=== PATIENT | female | born 1930 | race Caucasian/White ===

== ENCOUNTER 2017-08-24 08:37 | Inpatient (IN) | payer OTHER ==
[2017-07-27 11:50] VITALS: BMI 21.0
--- NOTE | 2017-07-27 12:27 | PAT Medication Instructions ---
Service Date Jul 27, 2017. Current Home Medication List Aspirin (Aspirin Ec), 81 MG PO QPM Levothyroxine Sodium (Levothyroxine Sodium), 1 TAB PO QAM Lisinopril (Prinivil), 5 MG PO QAM Medication Instructions For Your Scheduled Surgery - Hold the following medications the morning of surgery: Lisinopril (Prinivil), 5 MG PO QAM - Take the following medications the morning of surgery with a sip of water: Levothyroxine Sodium (Levothyroxine Sodium), 1 TAB PO QAM - Take the following medications as scheduled the night before surgery: Aspirin (Aspirin Ec), 81 MG PO QPM If you have any questions please call us at [phone] or [phone] or [phone]
--- NOTE | 2017-07-27 13:07 | DIAGNOSTIC IMAGING REPORT ---
CHEST 2 VIEWS ROUTINE CLINICAL HISTORY: Preoperative chest COMPARISON STUDY: No previous studies for comparison. FINDINGS: The heart is at the upper limits of normal in size. There is no failure. There is no focal pulmonary consolidation. There are no pleural effusions. There is a retrocardiac opacity consistent with a hiatal hernia.[ IMPRESSION: Hiatal hernia. No active disease in the chest. Electronically signed by: Júnior Sanchez M.D. 07/27/2017 1:06 PM Dictated Date/Time: 07/27/2017 1:06 PM
[2017-07-27 13:33] LABS: BASO % 0.3 %; BASO ABS # 0.02 K/uL (0-0.2); COMPLETE YES; EOS % 3.5 %; HEMATOCRIT 40.9 % (37-47); IG% 0.1 %; LYMPH % 26.4 %; LYMPH ABS # 1.94 K/uL (1.2-3.4); MEAN CELL VOLUME 97.1 fL (80-100); MEAN CORPUSCULAR HEMOGLOBIN 33.3 pg (25-34); MEAN CORPUSCULAR HGB CONC 34.2 g/dl (32-36); MEAN PLATELET VOLUME 9.5 fL (7.4-10.4); MONO % 10.1 %; NEUT % 59.6 %; PLATELET COUNT 256 K/uL (130-400); RED BLOOD COUNT 4.21 M/uL (4.2-5.4); WHITE BLOOD COUNT 7.36 K/uL (4.8-10.8)
[2017-07-27 13:42] LABS: BUN/CREATININE RATIO 21.3 (10-20); CALCIUM 9.1 mg/dl (8.5-10.1); CREATININE 1.34 mg/dl (0.60-1.20); POTASSIUM 4.4 mmol/L (3.5-5.1)
[2017-07-27 13:50] LABS: PROTHROMBIN TIME (PATIENT) 10.5 SECONDS (9.0-12.0)
--- NOTE | 2017-08-22 12:46 | HISTORY & PHYSICAL EXAMINATION ---
DATE OF ADMISSION: 08/24/2017 CHIEF COMPLAINT: Left knee pain, discomfort and instability. HISTORY OF PRESENT ILLNESS: The patient is an 86-year-old female who presents for further treatment of her left knee. She had a long history of left knee pain and discomfort. She describes it has gotten worse over the past several years. It has become more unstable to her as well. She wears a brace to try and stabilize it. She has chronic pain in her knee. The more she walks, the more it hurts. Very minimal response to injection. She would now like to proceed with surgical treatment. PAST MEDICAL HISTORY: Significant for, 1. Elevated cholesterol. 2. Hypothyroidism. 3. Kidney stones. PAST SURGICAL HISTORY: Include, 1. Kidney stone surgery. 2. Bunion surgery. 3. Cataract surgery. 4. Bladder surgery. ALLERGIES: KEFLEX, WHICH CAUSES GI IRRITATION. NO TRUE ANAPHYLAXIS. CURRENT MEDICINES: Include: 1. Levothyroxine 50 mcg. 2. Unspecified med - 5 mg. 3. Aspirin 81 mg a day. SOCIAL HISTORY: She is an 86-year-old female. She is a . Rare alcohol intake. She lives by herself. FAMILY HISTORY: Significant for heart disease, thyroid cancer, and skin cancer. REVIEW OF SYSTEMS: Negative for diabetes, neurologic problems, vascular problems, or bleeding disorders. Denies any chest pain or shortness of breath. No history of DVT or PE. PHYSICAL EXAMINATION: GENERAL: Physical examination reveals a thin, frail elderly female. She looks to be in good health. HEENT: Benign. NECK: Supple. No lymphadenopathy. LUNGS: Clear to auscultation. HEART: Regular rate and rhythm. ABDOMEN: Soft, nontender, and nondistended. EXTREMITIES: Grossly neurovascularly intact except as follows. Examination of the left knee reveals that the patient walks with a valgus alignment to her knee. With weightbearing, her knee goes into further valgus. Range of motion is 5-120. Small knee effusion. No pain with hip motion. X-RAYS: X-rays of the left knee were reviewed. It shows advanced knee lateral compartment DJD. She has complete loss of her lateral joint space. She has subchondral sclerosis. ASSESSMENT: An 86-year-old female with advanced left knee degenerative joint disease and instability. She has failed conservative treatment and would like to proceed with definitive treatment/knee replacement. PLAN: We are going to take her to the operating room and do a left total knee replacement. The risks and benefits of this procedure were explained to the patient, including but not limited to DVT, PE, , infection, neurological injury, vascular injury, bleeding problems, pain, limited range of motion, stiffness, failure to relieve her symptoms, incomplete relief of symptoms, need for further surgery in the future, fracture, leg length inequality, nerve palsy, persistent pain, etc. The patient understands and desires to proceed. Informed consent was obtained. The patient does live by herself. She is going to have her daughter come and stay with her as she works at [employer] and on break at this time. We did talk about holding her lisinopril on the morning of surgery. She should be okay getting Ancef as her KEFLEX IS JUST A GI IRRITATION, no true anaphylaxis. JANNA
[2017-08-24] VITALS (7 sets, daily range): BP systolic 95–164; BP diastolic 48–77; PULSE 63–87; TEMP 36.4–36.5; O2SAT 94–100; Ht 154.9 cm; Wt 21.6 kg
[~2017-08-24] VITALS: Ht 154.9 cm; Wt 21.6 kg
[~2017-08-24 08:37] MED LIST: ACETAMINOPHEN 500 MG TAB PO SCH; ASPI81TA28 PO; BUPIVACAINE 0.25% 30 ML VIAL ONE; BUPIVACAINE 0.5 % 5 MG/1 ML PF 10ML VIAL ONE; BUPIVACAINE LIPOSOME 266 MG, BUPIVACAINE/EPINEPHRINE INJ 50 ML, SODIUM CHLORIDE 0.9% PF... INFIL SCH; CEFAZOLIN 2000MG IV PUSH 10 ML IV SCH; DEXAMETHASONE SOD INJ 4 MG/ML VIAL ONE; EpINEphrine INJ 1MG/ML AMP 1 MG/ML AMP ONE; FAMOTIDINE 20 MG TAB PO SCH; GABAPENTIN 300 MG CAP PO SCH; LACTATED RINGER'S 1000ML 1,000 ML IV SCH; LACTATED RINGER'S 1000ML 500 ML IV ONE; LACTATED RINGER'S 1000ML IV SCH; LEVO50TA6 PO; LISI-729 PO; METOCLOPRAMIDE HCL 10 MG TAB PO SCH; SCOPOLAMINE 1.5 MG TDSY TD SCH; TRANEXAMIC ACID INJ 1,000 MG in SYRINGE 0 ML IV SCH
--- NOTE | 2017-08-24 09:08 | History & Physical Bridge Note ---
H&P Re-Evaluation Bridge Note: I have examined the patient, reviewed the History & Physical and in the interval since the performance of the History & Physical I have noted the following changes of clinical significance: No changes noted
[2017-08-24] MEDS ORDERED: MIDAZOLAM HCL 1 MG/ML 2ML VIAL ONE (10:14)
[2017-08-24] MEDS ORDERED: FENTANYL CITRATE INJ 50 MCG/1 ML 2 ML VIAL ONE (10:14)
[2017-08-24] MEDS ORDERED: ATROPINE SULFATE 0.1 MG/ML 5ML SYR IV PRN ×2 (10:15→14:00)
[2017-08-24] MEDS ORDERED: EpHEDrine SULFATE INJ 50 MG/ML AMP IV PRN ×2 (10:15→14:00)
[2017-08-24] MEDS ORDERED: FENTANYL CITRATE INJ 50 MCG/1 ML 2 ML VIAL IV PRN (10:15)
[2017-08-24] MEDS ORDERED: ONDANSETRON INJ 2 MG/ML 2 ML VIAL IV PRN ×2 (10:15→13:00)
[2017-08-24] MEDS ORDERED: SODIUM CHLORIDE 0.9% PF 50 ML VIAL ONE (11:02)
[2017-08-24] MEDS ORDERED: BACITRACIN 50000 UNIT VIAL ONE (11:02)
[2017-08-24] MEDS ORDERED: BUPIVACAINE/EPINEPHRINE 0.25% 1:200,000 30 ML VIAL ONE (11:02)
[2017-08-24] MEDS ORDERED: BUPIVACAINE LIPOSOME 1/3% 266 MG/20 ML VIAL INFIL ONE (11:02)
--- NOTE | 2017-08-24 12:59 | [facility] Post Operative Brief Note ---
Immediate Operative Summary Operative Date Aug 24, 2017. Pre-Operative Diagnosis Left Knee Advanced Degenerative Joint Disease Post-Operative Diagnosis Left Knee Advanced Degenerative Joint Disease Procedure(s) Performed Left Total Knee Arthroplasty Surgeon Dr. Jennings Leasing Consultant Surgeon(s) PAULA Mancuso Estimated Blood Loss 50 ml Findings Left KNEE DJD Fluids (cc crystalloids) 1300 cc Specimens A. Left Knee Bone and Tissue Drains None Anesthesia Spinal Complication(s) None Disposition Recovery Room / PACU
[2017-08-24] MEDS ORDERED: ALUMINUM/MAGNESIUM/SIMETH (MAALOX MAX) 30 ML UDC PO PRN (13:00)
[2017-08-24] MEDS ORDERED: BISACODYL 10 MG SUPP PR PRN (13:00)
[2017-08-24] MEDS ORDERED: NO NSAIDS SCH (13:00)
[2017-08-24] MEDS ORDERED: ZOLPIDEM TARTRATE 5 MG TAB PO PRN (13:00)
[2017-08-24] MEDS ORDERED: SILVER SULFADIAZINE 1% CR 50 GM JAR EXT PRN (13:00)
[2017-08-24] MEDS ORDERED: METOCLOPRAMIDE HCL INJ 5 MG/ML 2 ML VIAL IV PRN (13:00)
[2017-08-24] MEDS ORDERED: MAGNESIUM HYDROXIDE SUSP 30 ML UDC PO PRN (13:00)
[2017-08-24] MEDS ORDERED: HYDROmorphone INJ 0.5 MG/0.5 ML SYR IV PRN (13:15)
--- NOTE | 2017-08-24 13:30 | DIAGNOSTIC IMAGING REPORT ---
L KNEE 1 OR 2 VIEWS ROUTINE CLINICAL HISTORY: Postoperative evaluation. COMPARISON: Left knee radiographs June 10, 2017. FINDINGS: Alignment of the total left knee arthroplasty is anatomic. There is no periprosthetic fracture or unexpected radiopaque foreign body. Skin rony are present. IMPRESSION: Expected findings following total left knee arthroplasty. Electronically signed by: Pablo Mondragon M.D. 08/24/2017 1:28 PM Dictated Date/Time: 08/24/2017 1:26 PM
--- NOTE | 2017-08-24 13:54 | OPERATIVE REPORT ---
DATE OF OPERATION: 08/24/2017 PREOPERATIVE DIAGNOSIS: Left knee degenerative joint disease. POSTOPERATIVE DIAGNOSIS: Same. PROCEDURE PERFORMED: Left cement posterior stabilized total knee arthroplasty. SURGEON: Dr. Benji Jennings. BRUSHING OPERATOR: Igor Ulloa PA-C. COMPLICATIONS: None. ESTIMATED BLOOD LOSS: 50 mL. FLUID REPLACEMENT: 1300 mL crystalloid fluid replacement. TOURNIQUET TIME: 54 minutes at 300 mmHg. ANESTHESIA: Spinal with adductor canal block. DRAINS: None. SPECIMENS: Left knee sent for pathology. OPERATIVE INDICATIONS: The patient is an 86-year-old very independent active female who has had a long history of left knee pain and discomfort that she describes it got worse over time. She developed progressive valgus deformity knee and significant instability which failed brace treatment. She continues to have persistent pain and she elects to proceed with operative treatment. OPERATIVE FINDINGS: Operative findings revealed advanced left knee DJD with extensive grade 4 changes in the lateral femoral condyle and lateral tibial plateau. She had a valgus aligned knee. She had a large knee joint effusion. Diffuse osteopenia. OPERATIVE IMPLANTS: Operative implants consisted of: 1. Biomet Vanguard size 60 left posterior stabilized femoral component. 2. Biomet size 63 tibial tray. 3. A 10 mm posterior stabilized polyethylene insert. 4. A 28 x 8 all poly patella. OPERATIVE PROCEDURE: The patient taken to the operating room, identified and placed on the operating table in supine position. All contact areas were appropriately padded. IV antibiotics were provided by anesthesia team. A spinal anesthetic and adductor canal block had been provided in the holding area. Clark catheter was placed in sterile fashion. A left thigh tourniquet was then placed. The left lower extremity was then prepped and draped in the usual sterile fashion. Left leg was elevated and exsanguinated with Esmarch and tourniquet was placed at 300 mmHg. An anterior approach of the left knee was then performed through a longitudinal incision centered over the patella. Sharp dissection was carried down through the subcutaneous tissues down to the level of the extensor mechanism. Medial parapatellar arthrotomy incision was made. Some subperiosteal dissection was carried out medially. The fat pad was resected from beneath the patellar tendon. The lateral patellofemoral ligament was released. The patella was everted and knee was flexed. The osteophytes were taken off the distal femur. The ACL and PCL were then released from the distal femur and the tibia subluxated anteriorly. The external tibial alignment jig was then placed in the anterior face of the tibia and adjusted 12 mm medially. Proximal tibial cut was made to remove about 3-4 mm of bone from the medial side. The tibia was sized to a size 63. Attention was then drawn to the femur. The distal femur was entered with a sharp drill. Intramedullary canal was suctioned. A left 5 degree valgus cutting guide was placed. Distal femoral cutting block was pinned in place. Distal femoral cut was made to take an additional 3 mm of bone off the distal femur. The femur was then sized to a size 60. We did downsize this almost the entire size due to the narrow medial and lateral dimensions of her femur. The AP cutting block was pinned parallel to the epicondylar axis, which was 5 degrees of external rotation. The anterior cut, anterior chamfer, posterior cut, posterior chamfer cuts were made. Box cutting guide was placed and adjusted slightly lateral and the box cut was made. The knee was brought out into full extension. I did a little pie crusting of the IT band to equalize the extension gap. I did release the popliteus in order to equalize the flexion gap. The osteophytes were taken off the posterior aspect of the femur. A trial femoral component was placed. The tibial tray was pinned in maximum external rotation and drill and stem punch were used to create defect in proximal tibia for the tibial tray. The knee was then trialed and a 10 mm insert fit most appropriately. Attention was then drawn to the patella. The patella was cleaned of all soft tissue. Patella thickness measured 20 mm in thickness and was cut down to 13. It was sized to a size 28 patella. Lug holes were drilled for the 28 patella. Lateral osteophyte was removed. Patella button was placed. Knee was taken through range of motion and the patella tracked nicely with no thumbs test. Attention was then drawn toward placement of permanent components. All trial components were removed. A bone plug was placed in the distal femur to limit blood loss. A double batch of Palacos G cement was mixed. A left size 60 posterior stabilized femoral component, size 63 tibial tray, 10 mm posterior stabilized polyethylene insert, and 28 x 8 all poly patella were then cemented in place. Knee was brought out into full extension until cement hardened. A final cement check was then performed. Pericapsular tissues were injected with a total of 100 mL of a combination of 20 mL of Exparel, 30 mL of normal saline, 50 mL of 0.25% Marcaine with epinephrine. The patient did receive 1 gram of tranexamic acid. The tourniquet was then let down for final tourniquet time of 54 minutes. Hemostasis was assured with use of electrocautery. The wound was once again irrigated. The extensor mechanism was then closed with a combination of #1 PDS suture and #1 Vicryl suture in a [id number] fashion. Extensor mechanism was checked and found to be intact. Subcutaneous tissues were then closed with 2-0 Dexon suture in a buried interrupted fashion. Skin was closed skin rony. Leg was then cleaned and dried and a sterile dressing of Xeroform, 4 x 4, sterile cast padding and Fransico bandage were applied. The patient then transferred to the recovery room in stable condition. The patient tolerated the procedure with no complications. All needle and sponge counts were correct at the end of the operation. I attest to the content of the Intraoperative Record and any orders documented therein. Any exception s are noted below.
--- NOTE | 2017-08-24 14:01 | Anesthesiology Progress Note ---
Anesthesia Post Op Note Date & Time Aug 24, 2017 at 14:01 Vital Signs Pain Intensity: 0 Vital Signs Past 12 Hours Date Time Temp Pulse Resp B/P (MAP) Pulse Ox O2 Delivery O2 Flow Rate FiO2 08/24/17 13:40 36.6 70 14 106/53 94 Nasal Cannula 2 08/24/17 13:30 72 15 109/50 95 Nasal Cannula 2 08/24/17 13:20 69 17 102/46 96 Oxymask 10 08/24/17 13:10 63 18 85/40 97 Oxymask 10 08/24/17 13:04 36.8 74 18 91/46 97 Oxymask 10 08/24/17 09:22 36.5 87 16 95/74 98 Room Air Notes Mental Status: alert / awake / arousable, participated in evaluation Pt Amnestic to Procedure: Yes Nausea / Vomiting: adequately controlled Pain: adequately controlled Airway Patency, RR, SpO2: stable & adequate BP & HR: stable & adequate Hydration State: stable & adequate Neuraxial Anesthesia: was administered, sensory block is resolving Anesthetic Complications: no major complications apparent
--- NOTE | 2017-08-24 16:13 | PROGRESS NOTE ---
DATE: 08/24/2017 DATE: 08/24/2017 SUBJECTIVE: An 86-year-old female postop from a left knee replacement. She is doing well. Has not had any pain yet. No chest pain or shortness of breath. She is pretty hungry and eating her lunch. OBJECTIVE: VITAL SIGNS: Temperature 36.4. Vital signs stable. GENERAL: Reveals a healthy pleasant elderly female. She is sitting up in bed and eating her lunch. She is talking to her daughter while she is doing this. She looks comfortable. LUNGS: Clear to auscultation. HEART: Regular rate and rhythm. ABDOMEN: Soft, nontender, nondistended. EXTREMITY EXAMINATION: Grossly neurovascularly intact as follows: Examination of the left lower extremity reveals the leg to be well aligned. Dressing is clean, dry and intact. She can dorsiflex and plantarflex her foot appropriately. She is neurologically intact. X-RAYS: X-rays of the left knee from recovery room were reviewed. It shows a cemented posterior right total knee arthroplasty. Components look to be in good position. No signs of problems. ASSESSMENT: This 86-year-old female postop from a left knee replacement, doing well. Pain is controlled. She is neurologically intact. PLAN: 1. DVT prophylaxis including thigh high TEDs, SCDs, and aspirin twice a day. 2. PT, OT. Weight bear as tolerated. Left total knee protocol. 3. Pain control. Doing pretty well with current pain regimen. We will have to be careful to limit her narcotics. Unfortunately, she cannot take NSAIDs due to her elevated creatinine. 4. IV antibiotics x24 hours. 5. Disposition. She is planning to be discharged to home with some home health and her daughter is going to come and stay with her.
[2017-08-24] MEDS: D5W AND 1/2NSS + 20MEQ KCL 1,000 ML IV SCH (16:20)
[2017-08-24] MEDS: ACETAMINOPHEN 500 MG TAB PO SCH ×2 (16:20→22:30)
[2017-08-24] MEDS: CHECK SCOPOLAMINE PATCH PLACEMENT SCH ×2 (16:20→23:52)
[2017-08-24] MEDS: FERROUS GLUCONATE 324 MG TAB PO SCH (18:16)
[2017-08-24] MEDS ORDERED: TRANEXAMIC ACID INJ 1,000 MG in SODIUM CHLORIDE 0.9% 100ML 100 ML IV SCH (19:00)
[2017-08-24] MEDS: DOCUSATE SODIUM 100 MG CAP PO SCH (20:58)
[2017-08-24] MEDS: ASPIRIN 81 MG ECTAB PO SCH (20:58)
[2017-08-24] MEDS: CEFAZOLIN IV 1,000 MG in SYRINGE 0 ML IV SCH (20:58)
[2017-08-24] MEDS: SENNA 8.6 MG TAB PO SCH (20:58)
[2017-08-25] MEDS: D5W AND 1/2NSS + 20MEQ KCL 1,000 ML IV SCH ×2 (01:03→11:00)
[2017-08-25] MEDS: CEFAZOLIN IV 1,000 MG in SYRINGE 0 ML IV SCH (03:50)
[2017-08-25 03:58] VITALS: BP 138/74; PULSE 78; TEMP 36.7; O2SAT 96
[2017-08-25] MEDS: LEVOTHYROXINE 50 MCG TAB PO SCH (05:46)
[2017-08-25] MEDS: ACETAMINOPHEN 500 MG TAB PO SCH ×3 (05:47→21:58)
[2017-08-25 06:55] LABS: HEMATOCRIT 31.8 % (37-47); MEAN CELL VOLUME 95.8 fL (80-100); MEAN CORPUSCULAR HEMOGLOBIN 33.1 pg (25-34); MEAN CORPUSCULAR HGB CONC 34.6 g/dl (32-36); MEAN PLATELET VOLUME 9.5 fL (7.4-10.4); PLATELET COUNT 198 K/uL (130-400); RED BLOOD COUNT 3.32 M/uL (4.2-5.4)
[2017-08-25 07:23] VITALS: BP 127/71; PULSE 61; TEMP 36.7; O2SAT 96
[2017-08-25 07:30] LABS: BUN/CREATININE RATIO 16.4 (10-20); CALCIUM 8.1 mg/dl (8.5-10.1); CREATININE 1.31 mg/dl (0.60-1.20); POTASSIUM 4.2 mmol/L (3.5-5.1)
--- NOTE | 2017-08-25 07:47 | Clinical Documentation Query ---
CLINICAL DOCUMENTATION QUERY QUERY 1 OF 2 An 86-year-old female with advanced left knee degenerative joint disease and instability. In your clinical opinion is this patient being managed for: ( ) Acute kidney failure ( ) Not Agree ( x ) Other explanation of clinical findings (Please Explain) - Chronic kidney disease. ( ) Unable to determine (Please Define) ( ) Need to Discuss The medical record reflects the following clinical findings, treatment, and risk factors. Clinical Indicators: Creatinine 1.31, GFR 37.3 Treatment: IV hydration, serial PRPs Risk Factors: Age, HTN QUERY 2 OF 2 In your clinical opinion is this patient being managed for: ( ) Chronic kidney disease, stage 3 ( ) Not Agree ( ) Other explanation of clinical findings (Please Explain) ( ) Unable to determine (Please Define) ( ) Need to Discuss The medical record reflects the following clinical findings, treatment, and risk factors. Clinical Indicators: GFR 36.3 and 37.3 Treatment: IV hydration, serial PRPs Risk Factors: Age, HTN Please clarify and document your clinical opinion in the progress notes and discharge summary. Terms such as "probable", "suspected", "likely", "questionable", "possible", or "still to be ruled out" are acceptable. IF IN AGREEMENT, YOU MUST DOCUMENT ABOVE DIAGNOSTIC STATEMENT IN DAILY PROGRESS NOTES AND DISCHARGE SUMMARY. This document is not part of the patient's record. Thank You, Chelita Benavidez RN [phone]
[2017-08-25] MEDS: TRAMADOL HCL 50 MG TAB PO PRN ×2 (08:28→12:26)
[2017-08-25] MEDS: MULTIVITAMIN TAB PO SCH (08:29)
[2017-08-25] MEDS: FERROUS GLUCONATE 324 MG TAB PO SCH ×3 (08:29→17:45)
[2017-08-25] MEDS: CHECK SCOPOLAMINE PATCH PLACEMENT SCH ×2 (08:29→16:00)
[2017-08-25] MEDS: LISINOPRIL 5 MG TAB PO SCH (08:30)
[2017-08-25] MEDS: ASPIRIN 81 MG ECTAB PO SCH ×2 (08:30→21:02)
[2017-08-25] MEDS: DOCUSATE SODIUM 100 MG CAP PO SCH ×2 (08:30→21:03)
[2017-08-25] MEDS: PANTOprazole SOD 40 MG TAB PO SCH (08:32)
[2017-08-25] MEDS ORDERED: ULT50X PO (11:36)
[2017-08-25] MEDS ORDERED: ASPEC81 PO (11:36)
[2017-08-25] MEDS ORDERED: FRRG PO (11:36)
[2017-08-25] MEDS ORDERED: ACET-24 PO (11:36)
--- NOTE | 2017-08-25 11:38 | Discharge Instructions ---
Discharge Instructions Date of Service Aug 25, 2017. Admission Reason for Admission: Left Knee Degenerative Joint Disease Discharge Discharge Diagnosis / Problem: Left Knee Replacement Discharge Goals Goal(s): Decrease discomfort, Improve function, Increase independence, Improve disease control, Therapeutic intervention Activity Recommendations Activity Limitations: per Instructions/Follow-up section Weightbearing Status: Left weightbearing . Instructions / Follow-Up Instructions / Follow-Up ACTIVITY RECOMMENDATIONS: Physical Therapy: * You will go to physical therapy three times each week for four to six weeks after your surgery in order to regain your knee range of motion and to retrain your knee to work properly. * It is just as important to make sure you are getting your knee perfectly straight as it is to regain your knee bend. * Taking a pain pill an hour before therapy can help you have a more productive and comfortable therapy session. Home Exercise: * You were shown a series of exercises (heel props, heel slides, etc.) in the hospital. Do these exercises three to four times each day including the exercises you were shown in physical therapy. Walking: * Get up and walk several times each day. For the first four weeks, try not to stand or walk for more than one hour at a time. If you do stand or walk for more than one hour, you will not hurt anything, but your knee and leg will likely swell. * As you feel comfortable, you may change from the walker or crutches to a cane and then to independent walking. MEDICATIONS: New Medicine: * You will likely be taking one or more of these medications: 1. Tramadol - A quick and shorter-acting pain medication. Take one to two tablets every four to six hours to lessen your pain. 2. Iron Sulfate - Take two times each day for the month after surgery to help you replace the blood lost during surgery. 3. Aspirin - Thins your blood to lessen the chance of forming a blood clot. * The most common side effects of pain medicine and iron are nausea and constipation. If nausea or constipation is too much of a problem or if you have any questions about your new medicines or doses, call [facility] at . We will try to help you manage these issues. VERY IMPORTANT TO READ AND REVIEW" Pain: * The immediate post-operative period after knee replacement surgery is often quite painful. * You are given a prescription for pain medicine. You should take it, as directed, when you need it, especially before physical therapy and before going to bed. Pain that interferes with sleep is very common and can last several months. * You will likely need pain medicine for the first four to six weeks. It will not stop all of the pain. The pain will lessen and as you feel better, you may change to milder pain medicine such as Tylenol. * The most common side effects of pain medicine are nausea and constipation, so don't take more than you need. SPECIAL CARE INSTRUCTIONS: TEDs/Elastic Stockings: * The white elastic stockings help limit swelling and prevent blood clots from forming in your legs. The more you wear them, the more they work. * Wear them for six weeks after knee replacement surgery and four weeks after partial knee replacement. Prevention of Infection: * Take antibiotics one hour before any dental cleaning, dental work, urological procedure, gastrointestinal procedure or any invasive surgery in order to prevent your new joint from getting infected. * You may get the antibiotics from the doctor performing the procedure or you may call our office at before and we will call in a prescription to the pharmacy of your choice. Things to Watch For: * Drainage from the incision site that occurs more than one week after your surgery. * Severely increased knee/leg pain or swelling. * Increased redness at the incision site. * Fever above 102 degrees Fahrenheit. * Unusual chest pain or shortness of breath. * Unusual pain or burning with urination. Call [facility] at with any of the above problems or if you have any questions about your medicines or recovery. FOLLOW UP VISIT: Make an appointment to see your doctor for approximately two weeks after surgery for a progress check and staple removal by calling the office at . Current Hospital Diet Patient's current hospital diet: Regular Diet Discharge Diet Recommended Diet: Regular Diet Procedures Procedures Performed: Left Total Knee Arthroplasty Pending Studies Studies pending at discharge: no Medical Emergencies . Who to Call and When: Medical Emergencies: If at any time you feel your situation is an emergency, please call 101 immediately. . Non-Emergent Contact Non-Emergency issues call your: Surgeon . "Provider Documentation" section prepared by Benji Jennings. . VTE Core Measure Inpt VTE Proph given/why not?: Other Anticoagulation, T.E.D. Stockings, SCD's
[2017-08-25 12:03] VITALS: BP 144/69; PULSE 76; TEMP 36.5; O2SAT 99
--- NOTE | 2017-08-25 12:56 | Anesthesiology Progress Note ---
Anesthesia Post Op Note Date & Time Aug 25, 2017 at 12:56 Vital Signs Pain Intensity: 5.0 Vital Signs Past 12 Hours Date Time Temp Pulse Resp B/P (MAP) Pulse Ox O2 Delivery O2 Flow Rate FiO2 08/25/17 12:03 36.5 76 16 144/69 (94) 99 Room Air 08/25/17 07:30 Room Air 08/25/17 07:23 36.7 61 16 127/71 (89) 96 Room Air 08/25/17 03:58 36.7 78 15 138/74 (95) 96 Room Air Notes Mental Status: alert / awake / arousable, participated in evaluation Pt Amnestic to Procedure: Yes Nausea / Vomiting: adequately controlled Pain: adequately controlled Airway Patency, RR, SpO2: stable & adequate BP & HR: stable & adequate Hydration State: stable & adequate Neuraxial Anesthesia: sensory block resolved Anesthetic Complications: no major complications apparent
--- NOTE | 2017-08-25 14:18 | PROGRESS NOTE ---
DATE: 08/25/2017 DATE: 08/25/2017 SUBJECTIVE: An 86-year-old female postop day 1 from a left knee replacement. She has been a bit confused this afternoon. Denies any significant pain. She seems to have a meaningful conversation. Denies any chest pain or shortness of breath. OBJECTIVE: VITAL SIGNS: Temperature is 36.5. Vital signs stable. PHYSICAL EXAMINATION: GENERAL: Elderly frail female. She is sitting up at her bedside chair and looks pretty comfortable. She can have appropriate meaningful conversation. EXTREMITIES: Examination of the left leg reveals the dressing to be in place. She can dorsiflex and plantarflex her foot appropriately. She is neurologically intact. LABORATORY DATA: Hemoglobin is 11.0. Hematocrit 31.8. Electrolytes stable. Creatinine stable 1.31. ASSESSMENT: An 86-year-old female postop day 1 from a left knee replacement, doing pretty well. She is a bit confused, but very mild. No focal neurological issues. PLAN: 1. DVT prophylaxis including thigh-high TEDs, SCDs, and aspirin twice a day. 2. PT/OT. She can weightbear as tolerated. Left total knee protocol. 3. Pain control. Doing pretty well with current pain regimen. We are going to really try and limit any narcotic use to avoid confusion. 4. Confusion. We are going to limit narcotics. I removed scopolamine patch. 5. Disposition. She is planning to be discharged to home with her daughter's assistance once medically stable.
[2017-08-25 15:40] VITALS: BP 155/66; PULSE 80; TEMP 36.6; O2SAT 98
[2017-08-25] MEDS: SENNA 8.6 MG TAB PO SCH (21:02)
[2017-08-25 23:32] VITALS: BP 126/64; PULSE 117; TEMP 36.6; O2SAT 96
[2017-08-26] MEDS: CHECK SCOPOLAMINE PATCH PLACEMENT SCH (00:19)
[2017-08-26 03:32] VITALS: PULSE 89
[2017-08-26] MEDS: LEVOTHYROXINE 50 MCG TAB PO SCH (05:03)
[2017-08-26] MEDS: ACETAMINOPHEN 500 MG TAB PO SCH ×2 (05:04→14:14)
[2017-08-26 07:12] VITALS: BP 114/70; PULSE 96; TEMP 36.9; O2SAT 96
[2017-08-26 07:45] VITALS: O2SAT 96
--- NOTE | 2017-08-26 08:01 | PROGRESS NOTE ---
DATE: 08/26/2017 SUBJECTIVE: This is an 86-year-old female postop day 2 from a left knee replacement. She is doing pretty well. She had some mild intermittent confusion during this hospitalization. Knee is a bit better this morning. Denies any significant chest pain. She is surprised at how may her knee hurts. OBJECTIVE: VITAL SIGNS: Temperature is 36.6. Vital signs stable. GENERAL: Reveals a pleasant elderly female in bed, awake this morning. She seems pretty oriented. We did have to wake her, so it is a little bit difficult to evaluate mentation. She did respond appropriately to questions and commands. EXTREMITIES: Examination of the left leg reveals it to be well aligned. Some mild to moderate swelling. No significant drainage. She can dorsiflex and plantarflex her foot appropriately. ASSESSMENT: An 86-year-old female postop day 2 from a left knee replacement, doing pretty well. A little bit of intermittent confusion but seems to be getting better. PLAN: 1. DVT prophylaxis including thigh-high TEDs, SCDs, and aspirin twice a day. 2. PT/OT. She can weightbear as tolerated. Left total knee protocol. 3. Pain control, doing well with current pain regimen. We are going to try and limit narcotics to avoid confusion. 4. Disposition: She is planning to be discharged to home with some home health and her daughter is going to come and stay with her.
[2017-08-26] MEDS: PANTOprazole SOD 40 MG TAB PO SCH (08:18)
[2017-08-26] MEDS: MULTIVITAMIN TAB PO SCH (08:18)
[2017-08-26] MEDS: FERROUS GLUCONATE 324 MG TAB PO SCH ×2 (08:18→13:00)
[2017-08-26] MEDS: LISINOPRIL 5 MG TAB PO SCH (08:19)
[2017-08-26] MEDS: ASPIRIN 81 MG ECTAB PO SCH (08:21)
[2017-08-26] MEDS: DOCUSATE SODIUM 100 MG CAP PO SCH (08:22)
[2017-08-26] MEDS: TRAMADOL HCL 50 MG TAB PO PRN (08:29)
[2017-08-26 10:24] VITALS: BP 114/70; PULSE 96; TEMP 36.9; O2SAT 96
== END 2017-08-26 15:14 | disposition home health service (06) | DRG 470 ==
LOC: C.ACU 08:37 → C.3E 09:03 → ENRESERV 13:42
PROVIDERS: ADMIT Orthopaedic Surgery Sports Medicine; ATTEND Orthopaedic Surgery Sports Medicine
PROC: 0SRD0J9 Replacement of Left Knee Joint with Synthetic Substitute, Cemented, Open Approach (ICD-10-PCS; principal; 2017-08-24 10:50)
DX: M17.12 Unilateral primary osteoarthritis, left knee (principal); E03.9 Hypothyroidism, unspecified; Z79.82 Long term (current) use of aspirin; Z79.899 Other long term (current) drug therapy; R41.0 Disorientation, unspecified